=== PATIENT | female | born 1955 | race African-American/Black ===

== ENCOUNTER 2020-05-30 11:19 | Emergency (ER) | payer BC, OTHER, SELFPAY ==
[~2020-05-30] VITALS: Ht 167.6 cm; Wt 90.7 kg
[2020-05-30 11:22] VITALS: BP 151/76; Ht 167.6 cm; Wt 90.7 kg
== END 2020-05-30 12:25 | disposition home or self-care (01) ==
LOC: ED 11:19
DX: R05 Cough (principal); R09.82 Postnasal drip; I10 Essential (primary) hypertension; E11.9 Type 2 diabetes mellitus without complications; K21.9 Gastro-esophageal reflux disease without esophagitis; Z20.828 Contact with and (suspected) exposure to other viral communicable diseases; Z88.6 Allergy status to analgesic agent; Z88.1 Allergy status to other antibiotic agents; Z91.040 Latex allergy status; Z98.890 Other specified postprocedural states
CPT/HCPCS: U0003-CS